=== PATIENT | female | born 1940 | race Caucasian/White ===

== ENCOUNTER 2022-01-27 07:00 | Inpatient (IN) | payer BC ==
[~2022-01-27] VITALS: Ht 160 cm; Wt 61.7 kg
[~2022-01-27 07:00] MED LIST: AMLO2.5T2 PO; CEFAZOLIN SOD 1 GM in D5W 50 ML IV ONE; FAMO40TA7 PO; LOSA50TA3 PO; ROSU20TA2 PO
[2022-01-27] MEDS ORDERED: cefOXitin SODIUM 2 GM in D5W 100 ML IV ONE (08:00)
[2022-01-27] MEDS ORDERED: BUPIVACAINE LIPOSOME/PF 266 MG/20 ML VIAL INFIL ONE (09:28)
[2022-01-27] MEDS ORDERED: ACETAMINOPHEN I.V. 1000 MG 100 ML IV ONE (09:28)
[2022-01-27] MEDS ORDERED: ONDANSETRON HCL 4 MG/2 ML VIAL IVP ONE (09:34)
[2022-01-27] MEDS ORDERED: KETOROLAC TROMETHAMINE 30 MG VIAL IVP ONE (09:34)
[2022-01-27] MEDS ORDERED: SUGAMMADEX SODIUM 200 MG/2 ML VIAL IV ONE (09:34)
[2022-01-27] MEDS ORDERED: MIDAZOLAM HCL 5 MG/ML VIAL (VERSED) IV ONE (09:34)
[2022-01-27] MEDS ORDERED: ROCURONIUM BROMIDE 10 MG/ML (ZEMURON) IV ONE (09:34)
[2022-01-27] MEDS ORDERED: fentaNYL CITRATE 250 MCG/5 ML AMP IV ONE (09:34)
[2022-01-27] MEDS ORDERED: NS IRRIG SOLN 1000 ML IR ONE (09:34)
[2022-01-27] MEDS ORDERED: NS 1000 ML IV.SOLN IV ONE (09:34)
[2022-01-27] MEDS ORDERED: cefOXitin SODIUM 2 GM/VIAL (MEFOXIN) IV ONE (09:34)
[2022-01-27] MEDS ORDERED: LIDOCAINE 1% 10 MG/ML, 20 ML MDV INJ ONE (09:34)
[2022-01-27] MEDS ORDERED: LR 1,000 ML IV.SOLN IV ONE (09:34)
[2022-01-27] MEDS ORDERED: NS 100 ML BAG IV ONE (09:34)
[2022-01-27] MEDS ORDERED: DESFLURANE 15 MIN GAS INH ONE (09:34)
[2022-01-27] MEDS ORDERED: PROPOFOL 200MG/ 20ML VIAL (DIPRIVAN) IV ONE (09:34)
[2022-01-27] MEDS ORDERED: DEXAMETHASONE SOD PHOSPHATE 4 MG/ML VIAL IVP ONE (09:34)
[2022-01-27] MEDS ORDERED: BUPIVACAINE /PF 0.25% 30 ML VIAL INJ ONE (09:34)
[2022-01-27] MEDS ORDERED: HYDROmorphone 1 MG/ML INJ. CARTRIDGE IVP PRN ×2 (10:15)
[2022-01-27] MEDS ORDERED: MEPERIDINE HCL/PF 25 MG/ML DISP.SYRIN IVP PRN (10:15)
[2022-01-27] MEDS ORDERED: LABETALOL 100 MG/ 20ML VIAL IVP PRN (10:15)
[2022-01-27] MEDS ORDERED: hydrALAZINE HCL 20 MG/ML VIAL IVP PRN (10:15)
[2022-01-27] MEDS ORDERED: LR 1,000 ML IV SCH (10:15)
[2022-01-27] MEDS ORDERED: METOCLOPRAMIDE HCL 10 MG/2 ML VIAL IVP PRN (10:15)
[2022-01-27] MEDS ORDERED: ACETAMINOPHEN 325 MG TABLET PO PRN (13:00)
[2022-01-27] MEDS ORDERED: HYDROcodone/ACETAMIN 5-325 MG TAB (NORCO/ VICODIN) PO PRN (13:00)
[2022-01-27] MEDS ORDERED: ONDANSETRON HCL 4 MG/2 ML VIAL IVP PRN (13:00)
[2022-01-27] MEDS: D5/0.45 NS 1,000 ML IV SCH (13:00)
[2022-01-27 13:17] LABS: HEMOGLOBIN 11.8 g/dL (12.0-16.0)
[2022-01-27 13:35] LABS: ANION GAP 6 (5-15); CALCIUM 7.8 mg/dL (8.4-11.0); CHLORIDE 109 mmol/L (98-107); CREATININE 1.01 mg/dL (0.55-1.30); GLUCOSE 152 mg/dL (70-99); POTASSIUM 3.5 mmol/L (3.5-5.1); SODIUM SERUM 140 mmol/L (136-145); UREA NITROGEN, BLOOD 14 mg/dL (8-21)
[2022-01-27] MEDS: HYDROmorphone 1 MG/ML INJ. CARTRIDGE ONE ×2 (13:35→13:40)
--- NOTE | 2022-01-27 15:54 | NUR ---
PATIENT BROUGHT FROM OR TO ROOM 108A, BEDSIDE REPORT RCVD FROM AGRONOMY ADVISOR, ALL CARES ASSUMED
--- NOTE | 2022-01-27 15:55 | NUR ---
PATIENT IS AOX4, ON ROOM AIR WITH EQUAL CHEST RISE AND FALL, NSR, VITALS WNL, ABD NOTED WITH ABD BINDER, NO ACTIVE BLEEDING NOTED, CLEAN DRY AND INTACT, PATIENT HAS PURPOSEFUL MOVEMENT BUE / BLE, SKIN IS CLEAN DRY AND WARM TO TOUCH, NO BREAKDOWN NOTED. 20G PIV TO RIGHT HAND, PATENT WITH NO SIGNS OF INFILTRATION. PATIENT IS FRIENDLY AND COOPERATIVE TO SPEAK WITH. AND SON AT BEDSIDE. EDUCATION UNISAW OPERATOR LIGHT PROVIDED, PATIENT RETURNED DEMONSTRATION, BED IS LOW AND LOCKED FOR SAFETY.
--- NOTE | 2022-01-27 15:57 | NUR ---
C/P PAIN 10/10 LOWER BACK, PRN GIVEN PER ORDER.
[2022-01-27] MEDS: HYDROmorphone 1 MG/ML INJ. CARTRIDGE IVP PRN (16:03)
[2022-01-27 16:14] VITALS: BP_SYST 121
--- NOTE | 2022-01-27 17:05 | NUR ---
PATIENT ASLEEP IN NO ACUTE DISTRESS AND OR DISCOMFORT
--- NOTE | 2022-01-27 18:50 | NUR ---
CLOSING NOTE: PATIENT HAS REMAINED STABLE THROUGHOUT SHIFT, WILL ENDORSE CARES TO NOC RN.
[2022-01-27 20:00] VITALS: BP_SYST 139
[2022-01-27] MEDS: ALVIMOPAN 12 MG CAPSULE PO SCH (20:43)
[2022-01-27] MEDS: HYDROcodone/ACETAMIN 5-325 MG TAB (NORCO/ VICODIN) PO PRN (20:44)
[2022-01-27] MEDS: cefOXitin SODIUM 2 GM in D5W 100 ML IV SCH (23:25)
[2022-01-27] MEDS: FAMOTIDINE PF 20 MG/2 ML VIAL IVP SCH (23:26)
[2022-01-28] MEDS: D5/0.45 NS 1,000 ML IV SCH ×3 (00:11→21:11)
[2022-01-28 00:19] VITALS: BP_SYST 149
[2022-01-28 06:55] LABS: BASOPHILS # (AUTO) 0.1 K/uL (0.0-0.2); BASOPHILS % (AUTO) 0.8 % (0.0-2.0); EOSINOPHILS % (AUTO) 0.2 % (0.0-4.0); HEMATOCRIT 32.4 % (36-48); HEMOGLOBIN 11.3 g/dL (12.0-16.0); LYMPHOCYTES # (AUTO) 1.9 K/uL (1.0-5.5); LYMPHOCYTES % (AUTO) 17.1 % (20.5-51.5); MEAN CORPUSCULAR HEMOGLOBIN 31 pg (27-31); MEAN CORPUSCULAR HGB CONC 35 % (32-36); MEAN CORPUSCULAR VOLUME 90 fL (79.0-98.0); MONOCYTES % (AUTO) 8.9 % (1.7-9.3); NEUTROPHILS # (AUTO) 8.2 K/uL (1.8-7.7); PLATELET COUNT (AUTO) 245 K/uL (130-430); RED BLOOD CELL COUNT(AUTO) 3.62 MIL/uL (4.2-6.2); RED CELL DISTRIBUTION WIDTH 13.4 % (9.0-15.0); WHITE BLOOD COUNT (AUTO) 11.2 K/uL (4.8-10.8)
[2022-01-28 07:08] LABS: ALANINE AMINOTRANSFERASE 28 U/L (12-78); ALBUMIN 2.9 g/dL (3.4-4.8); ANION GAP 7 (5-15); ASPARTATE AMINOTRANSFERASE 24 U/L (10-37); CHLORIDE 106 mmol/L (98-107); CREATININE 0.69 mg/dL (0.55-1.30); GLUCOSE 123 mg/dL (70-99); POTASSIUM 3.2 mmol/L (3.5-5.1); SODIUM SERUM 137 mmol/L (136-145); TOTAL BILIRUBIN 0.5 mg/dL (0.0-1.0); UREA NITROGEN, BLOOD 10 mg/dL (8-21)
[2022-01-28 08:00] VITALS: BP_SYST 141
[2022-01-28] MEDS: FAMOTIDINE PF 20 MG/2 ML VIAL IVP SCH ×2 (09:14→21:11)
[2022-01-28] MEDS: cefOXitin SODIUM 2 GM in D5W 100 ML IV SCH (09:15)
[2022-01-28] MEDS: ALVIMOPAN 12 MG CAPSULE PO SCH ×2 (09:15→21:11)
[2022-01-28] MEDS: HYDROmorphone 1 MG/ML INJ. CARTRIDGE IVP PRN ×2 (09:31→15:34)
[2022-01-28] MEDS ORDERED: KCL 20 mEq in 100 mL (PREMIX) 100 ML IV ONE (13:30)
[2022-01-28 15:00] VITALS: BP_SYST 144
[2022-01-28] MEDS: ENOXAPARIN SODIUM 30 MG/0.3 ML SYRINGE SUBCUT SCH (15:35)
--- NOTE | 2022-01-28 17:17 | NUR ---
A/Ox4,vss,anxious,shaking,ambulaotry by self.crying pain in arm with first k rider infusion. stop infusion and changed K rider 40meq in 250ml dextrose bag,and given per nurse discharge planner midline in left upper arm remains patent and intact.MRI pelvis rescheduled tomorrow needs attended,hourly round made,safety maintained. Addendum: 01/28/22 at 1722 by [place] algology teacher above entry entered in error
--- NOTE | 2022-01-28 17:22 | NUR ---
A/Ox4,vss,resting well in bed,midline abdominal incision with dressing on dry and intact and covered by abdominal binder.IVF continue infusing,K level 3.2,give K rider 20 meq IV once per order patient passed gas and start clear liquid diet,c/o abdominal pain,give dilaudid 1 mg IV as prn order for severe pain.needs attended,call light & personal items within pt reach,safety maintained continue to monitor pt
[2022-01-28] MEDS: METOCLOPRAMIDE HCL 10 MG/2 ML VIAL IVP SCH ×2 (18:51→23:41)
[2022-01-28 20:00] VITALS: BP_SYST 151
[2022-01-29] VITALS: BP_SYST 143
[2022-01-29] MEDS: D5/0.45 NS 1,000 ML IV SCH ×2 (05:00→18:20)
--- NOTE | 2022-01-29 06:00 | NUR ---
NO CHANGES NOTED THROUGHOUT THE SHIFT, PT RESTING COMFORTABLY IN BED, AOX4, NO DISTRESS OR DISCOMFORT NOTED, BREATHING EVEN AND UNLABORED, ALL FALL PROTOCOLS MAINTAINED, BLACKBURN CATH DISCONTINUED, REPOSITIONS SELF PER COMFORT, WILL CONTINUE TO MONITOR.
[2022-01-29] MEDS: METOCLOPRAMIDE HCL 10 MG/2 ML VIAL IVP SCH ×3 (06:41→18:20)
[2022-01-29 06:42] LABS: BASOPHILS % (AUTO) 0.5 % (0.0-2.0); EOSINOPHILS # (AUTO) 0.2 K/uL (0.0-0.4); EOSINOPHILS % (AUTO) 1.9 % (0.0-4.0); HEMATOCRIT 34.1 % (36-48); HEMOGLOBIN 11.7 g/dL (12.0-16.0); LYMPHOCYTES # (AUTO) 2.3 K/uL (1.0-5.5); LYMPHOCYTES % (AUTO) 24.9 % (20.5-51.5); MEAN CORPUSCULAR HEMOGLOBIN 31 pg (27-31); MEAN CORPUSCULAR HGB CONC 34 % (32-36); MEAN CORPUSCULAR VOLUME 90 fL (79.0-98.0); MONOCYTES # (AUTO) 0.8 K/uL (0.0-1.0); MONOCYTES % (AUTO) 8.3 % (1.7-9.3); NEUTROPHILS % (AUTO) 64.4 % (40.0-70.0); PLATELET COUNT (AUTO) 261 K/uL (130-430); RED BLOOD CELL COUNT(AUTO) 3.79 MIL/uL (4.2-6.2); RED CELL DISTRIBUTION WIDTH 13.6 % (9.0-15.0); WHITE BLOOD COUNT (AUTO) 9.4 K/uL (4.8-10.8)
[2022-01-29 07:00] LABS: ALANINE AMINOTRANSFERASE 30 U/L (12-78); ALBUMIN 2.8 g/dL (3.4-4.8); ANION GAP 6 (5-15); ASPARTATE AMINOTRANSFERASE 22 U/L (10-37); CALCIUM 8.2 mg/dL (8.4-11.0); CHLORIDE 109 mmol/L (98-107); CREATININE 0.67 mg/dL (0.55-1.30); GLUCOSE 108 mg/dL (70-99); POTASSIUM 3.4 mmol/L (3.5-5.1); SODIUM SERUM 140 mmol/L (136-145); TOTAL BILIRUBIN 0.4 mg/dL (0.0-1.0); UREA NITROGEN, BLOOD 5 mg/dL (8-21)
--- NOTE | 2022-01-29 07:24 | NUR ---
SHIFT REPORT REPORT GIVEN TO GAGAN RN FOR CONTINUITY OF CARE ALL QUESTIONS WERE ANSWERED AND RN VERBALIZED UNDERSTANDING.
[2022-01-29 08:00] VITALS: BP_SYST 145
[2022-01-29] MEDS: ENOXAPARIN SODIUM 30 MG/0.3 ML SYRINGE SUBCUT SCH (08:57)
[2022-01-29] MEDS: HYDROmorphone 1 MG/ML INJ. CARTRIDGE IVP PRN ×2 (08:57→18:34)
[2022-01-29] MEDS: ALVIMOPAN 12 MG CAPSULE PO SCH ×2 (08:58→21:19)
[2022-01-29] MEDS: FAMOTIDINE PF 20 MG/2 ML VIAL IVP SCH ×2 (08:58→21:19)
[2022-01-29 11:35] VITALS: BP_SYST 152
[2022-01-29] MEDS ORDERED: KCL 20 mEq in 100 mL (PREMIX) 100 ML IV ONE ×2 (13:00→16:30)
--- NOTE | 2022-01-29 13:07 | NUR ---
PATIENT WAS SEEN FOR EVALUATION. SHE REQUIRES STAND BY ASSISTANCE DURING AMBULATION WHILE USING THE FWW. PATIENT IS SAFE TO AMBULATE WITH NURSING ASSISTANCE.
[2022-01-29] MEDS ORDERED: LOSARTAN POTASSIUM 50 MG TABLET (COZAAR) PO ONE (14:00)
[2022-01-29 15:23] VITALS: BP_SYST 150
--- NOTE | 2022-01-29 18:44 | NUR ---
pt A/Ox4,vss,ambulated to bathroom and voided well,has 1 episode of BM with blood noted in stool called and notified,d/c lovenox per dr order.and continue to monitor signs of bleeding repeat CBC in am.c/o IV site in right hand painful,removed and restarted in left forearm 22 gauge x1 attempt and continue IVF and K rider 40meq per order.needs attended, hourly rounds made,safety maintained.
[2022-01-29 20:00] VITALS: BP_SYST 160
--- NOTE | 2022-01-29 20:00 | NUR ---
REC'D PT IN BED AOX4, NO DISTRESS OR DISCOMFORT NOTED, BREATHING EVEN AND UNLABORED, DENIES PAIN, VITAL SIGNS STABLE, PT RESTING COMFORTABLY IN BED, ALL FALL PROTOCOLS MAINTAINED, BED IN LOWEST POSITION, CALL LIGHT WITHIN REACH, EDUCATED PT TO CALL FOR ASSISTANCE WHEN NEEDED, PT VERBALIZED UNDERSTANDING, WILL CONTINUE TO MONITOR.
[2022-01-29] MEDS ORDERED: ATORVASTATIN 20 MG TABLET PO SCH (21:00)
[2022-01-30] VITALS: BP_SYST 145
[2022-01-30] MEDS ORDERED: hydrALAZINE HCL 10 MG TABLET PO PRN
[2022-01-30] MEDS: METOCLOPRAMIDE HCL 10 MG/2 ML VIAL IVP SCH ×3 (00:44→12:22)
[2022-01-30] MEDS: D5/0.45 NS 1,000 ML IV SCH ×2 (00:45→11:38)
--- NOTE | 2022-01-30 04:00 | NUR ---
NO CHANGES NOTED THROUGHOUT THE SHIFT, PT RESTING COMFORTABLY IN BED, AOX4, NO DISTRESS OR DISCOMFORT NOTED, BREATHING EVEN AND UNLABORED, ALL FALL PROTOCOLS MAINTAINED, REPOSITIONS SELF PER COMFORT, WILL CONTINUE TO MONITOR.
[2022-01-30] MEDS: HYDROmorphone 1 MG/ML INJ. CARTRIDGE IVP PRN (04:06)
[2022-01-30 07:16] LABS: BASOPHILS # (AUTO) 0.1 K/uL (0.0-0.2); BASOPHILS % (AUTO) 0.6 % (0.0-2.0); EOSINOPHILS # (AUTO) 0.3 K/uL (0.0-0.4); EOSINOPHILS % (AUTO) 2.7 % (0.0-4.0); HEMOGLOBIN 11.7 g/dL (12.0-16.0); LYMPHOCYTES # (AUTO) 1.8 K/uL (1.0-5.5); LYMPHOCYTES % (AUTO) 16.6 % (20.5-51.5); MEAN CORPUSCULAR HEMOGLOBIN 31 pg (27-31); MEAN CORPUSCULAR HGB CONC 35 % (32-36); MEAN CORPUSCULAR VOLUME 90 fL (79.0-98.0); MONOCYTES # (AUTO) 0.9 K/uL (0.0-1.0); MONOCYTES % (AUTO) 8.1 % (1.7-9.3); NEUTROPHILS # (AUTO) 7.7 K/uL (1.8-7.7); PLATELET COUNT (AUTO) 271 K/uL (130-430); RED BLOOD CELL COUNT(AUTO) 3.77 MIL/uL (4.2-6.2); RED CELL DISTRIBUTION WIDTH 13.5 % (9.0-15.0); WHITE BLOOD COUNT (AUTO) 10.7 K/uL (4.8-10.8)
--- NOTE | 2022-01-30 07:18 | NUR ---
SHIFT CHANGE REPORT GIVEN TO MANNY RN FOR CONTINUITY OF CARE ALL QUESTIONS WERE ANSWERED AND RN VERBALIZED UNDERSTANDING.
[2022-01-30 07:55] LABS: ALANINE AMINOTRANSFERASE 29 U/L (12-78); ALBUMIN 2.5 g/dL (3.4-4.8); ANION GAP 7 (5-15); ASPARTATE AMINOTRANSFERASE 29 U/L (10-37); CALCIUM 7.6 mg/dL (8.4-11.0); CHLORIDE 107 mmol/L (98-107); CREATININE 0.69 mg/dL (0.55-1.30); GLUCOSE 114 mg/dL (70-99); POTASSIUM 3.4 mmol/L (3.5-5.1); SODIUM SERUM 141 mmol/L (136-145); TOTAL BILIRUBIN 0.4 mg/dL (0.0-1.0); UREA NITROGEN, BLOOD 3 mg/dL (8-21)
[2022-01-30 08:00] VITALS: BP_SYST 130
--- NOTE | 2022-01-30 08:00 | NUR ---
RECEIVED PATIENT FROM PM NURSE, ALERT AND ORIENTED X4, ABLE TO VERBALIZE NEEDS, NO C/O PAIN OR DISCOMFORT, WILL ASSUME ALL CARE OF PATIENT
[2022-01-30] MEDS ORDERED: LOSARTAN POTASSIUM 50 MG TABLET (COZAAR) PO SCH (09:00)
[2022-01-30] MEDS: ALVIMOPAN 12 MG CAPSULE PO SCH (09:04)
[2022-01-30] MEDS: FAMOTIDINE PF 20 MG/2 ML VIAL IVP SCH (09:04)
--- NOTE | 2022-01-30 10:15 | NUR ---
PATIENT C/O NAUSEA AND VOMITING, PRN ZOFRAN ADMINISTERED PER EMAR
[2022-01-30 11:37] VITALS: BP_SYST 121
[2022-01-30] MEDS: HYDROcodone/ACETAMIN 5-325 MG TAB (NORCO/ VICODIN) PO PRN (12:20)
[2022-01-30 12:30] VITALS: BP_SYST 120
--- NOTE | 2022-01-30 12:45 | NUR ---
PATIENT K+ 3.4, MADE AWARE, 20MEQ OF PO KLORCON ORDERED AND ADMINISTERED TO PATIENT
[2022-01-30] MEDS ORDERED: POTASSIUM CHLORIDE 20 MEQ TAB.PRT.SR PO ONE (13:15)
[2022-01-30 16:17] VITALS: BP_SYST 146
--- NOTE | 2022-01-30 17:13 | NUR ---
PATIENT DC HOME, DC EDUCATION PROVIDED REGARDING MEDICATION, SYMPTOM MANAGEMENT, AND FOLLOW UP APPOINTMENTS WELL WHEN TO CONTACT PHYSICIAN, IV IN LEFT WRIST DC WITH CATH IN PLACE, TRANFERED TO LOBBY VIA WC, TRANSPORTED HOME BY DAUGHTER, NO OTHER NEEDS AT THIS TIME
== END 2022-01-30 17:05 | disposition home or self-care (01) | DRG 330 ==
LOC: SDS 07:00 → SMU 07:04 → EDSTATUS 09:05 → SDS 10:00 → SMU 12:56
PROVIDERS: ADMIT Colon & Rectal Surgery; ATTEND Colon & Rectal Surgery
PROC: 0DBE0ZZ Excision of Large Intestine, Open Approach (ICD-10-PCS; 2022-01-27)
PROC: 0DNL0ZZ Release Transverse Colon, Open Approach (ICD-10-PCS; 2022-01-27)
PROC: 0DJD8ZZ Inspection of Lower Intestinal Tract, Via Natural or Artificial Opening Endoscopic (ICD-10-PCS; principal; 2022-01-27 09:48)
DX: K63.5 Polyp of colon (principal); E44.0 Moderate protein-calorie malnutrition; K57.90 Diverticulosis of intestine, part unspecified, without perforation or abscess without bleeding; I10 Essential (primary) hypertension; E83.51 Hypocalcemia; K66.0 Peritoneal adhesions (postprocedural) (postinfection); Z20.822 Contact with and (suspected) exposure to COVID-19; E87.6 Hypokalemia; Z68.24 Body mass index [BMI] 24.0-24.9, adult
CPT/HCPCS: 36415; 80048; 80053; 85018; 85025; 86886; 86900; 86901; 87081; 88307; 97110-GP; 97112-GP; 97116-GP; C1727; C9290; J0131; J0690; J0694; J1100; J1170; J1650; J1885; J2001; J2250; J2405; J2704; J2765; J3010; J3480; J3490; J7030; J7060; J7120; U0003